=== PATIENT | female | born 1990 | race Caucasian/White ===

== ENCOUNTER → 2016-09-03 | Outpatient (CLI) | payer OTHER | END | disposition short-term general hospital (02) | LOC: CLSURG 09:35 | DX: K82.8 Other specified diseases of gallbladder (principal); R10.11 Right upper quadrant pain ==

== ENCOUNTER 2016-09-10 11:19 | Day surgery (SDC) | payer OTHER ==
[~2016-09-10] VITALS: Ht 160 cm; Wt 93.4 kg
== END 2016-09-10 16:00 | disposition short-term general hospital (02) ==
LOC: SURGOP 11:19
PROC: 0FT44ZZ Resection of Gallbladder, Percutaneous Endoscopic Approach (ICD-10-PCS; principal; 2016-09-10)
DX: K82.4 Cholesterolosis of gallbladder (principal); K82.8 Other specified diseases of gallbladder; M54.12 Radiculopathy, cervical region; M94.0 Chondrocostal junction syndrome [Tietze]; G56.03 Carpal tunnel syndrome, bilateral upper limbs; Z79.899 Other long term (current) drug therapy; Z86.2 Personal history of diseases of the blood and blood-forming organs and certain disorders involving the immune mechanism; Z82.49 Family history of ischemic heart disease and other diseases of the circulatory system
CPT/HCPCS: J0131; J1100; J1885; J1956; J2250; J2405; J2710; J2765; J3010

== ENCOUNTER → 2016-09-17 | Outpatient (CLI) | payer OTHER | END | disposition short-term general hospital (02) | LOC: CLSURG 10:26 | DX: Z48.815 Encounter for surgical aftercare following surgery on the digestive system (principal) ==